=== PATIENT | male | born 1990 | race Caucasian/White ===

== ENCOUNTER 2018-12-28 04:56 | Emergency (ER) | payer OTHER ==
[2018-12-28 05:25] LABS: Appearance,Urine Clear (Clear); Bilirubin,Urine Negative (Negative); Blood,Urine Negative (Negative); Color,Urine Light Yellow; Glucose,Urine (UA) Negative (Negative); Ketones,Urine Negative (Negative); Leukocyte Esterase,Urine Negative (Negative); Nitrite,Urine Negative (Negative); Protein,Urine Negative (Negative); Specific Gravity,Urine 1.007 (1.001-1.035); Urobilinogen,Urine <2.0 mg/dL (<2.0)
--- NOTE | 2018-12-28 05:39 | ED ---
Male Urogenital HPI - General Chief complaint: Urogenital Stated complaint: Testicle pain Time Seen by Provider: 12/28/18 05:09 Source: patient Mode of arrival: ambulatory Limitations: no limitations - History of Present Illness Complaint: testicle pain Onset/Timin -: days(s) Location: left testicle Radiation: none Severity: mild Quality: dull Consistency: intermittent Improves with: none Worsens with: palpation Reports: denies other symptoms - Related Data Home Medications Medication Instructions Recorded Confirmed No Known Home Medications 12/28/18 12/28/18 Allergies Allergy/AdvReac Type Severity Reaction Status Date / Time No Known Allergies Allergy Verified 12/28/18 05:04 Review of Systems ROS Statement: Those systems with pertinent positive or pertinent negative responses have been documented in the HPI. ROS Other: All systems not noted in ROS Statement are negative. Constitutional: Denies: fever, chills Respiratory: Denies: cough Cardiovascular: Denies: chest pain, palpitations Gastrointestinal: Denies: abdominal pain, nausea, vomiting Genitourinary: Reports: testicular pain. Denies: dysuria, frequency, hematuria, discharge, testicular mass Musculoskeletal: Denies: back pain Skin: Denies: rash Neurological: Denies: headache Past Medical History Past Medical History: No Reported History History of Any Multi-Drug Resistant Organisms: None Reported Past Surgical History: No Surgical Hx Reported Past Psychological History: No Psychological Hx Reported Smoking Status: Former smoker Past Alcohol Use History: Rare Past Drug Use History: Marijuana General Exam Limitations: no limitations General appearance: alert, in no apparent distress Head exam: Present: atraumatic, normocephalic Eye exam: Present: normal appearance GI/Abdominal exam: Present: soft. Absent: distended, tenderness, guarding, rebound, rigid, mass exam: Present: normal inspection, testicular tenderness, circumcision. Absent: urethral discharge, scrotal swelling Back exam: Present: normal inspection. Absent: CVA tenderness (R), CVA tenderness (L) Neurological exam: Present: alert, normal gait Skin exam: Present: warm, dry, intact, normal color. Absent: rash Course Vital Signs 12/28/18 05:00 Temperature 98.8 F Pulse Rate 96 Respiratory 20 Rate Blood Pressure 144/92 O2 Sat by Pulse 100 Oximetry Medical Decision Making - Lab Data Lab Results 12/28/18 Range/Units 05:14 Urine Color Light Yellow Urine Appearance Clear (Clear) Urine pH 6.0 (5.0-8.0) Ur Specific [place] 1.007 (1.001-1.035) Urine Protein Negative (Negative) Urine Glucose (UA) Negative (Negative) Urine Ketones Negative (Negative) Urine Blood Negative (Negative) Urine Nitrite Negative (Negative) Urine Bilirubin Negative (Negative) Urine Urobilinogen <2.0 (<2.0) mg/dL Ur Leukocyte Esterase Negative (Negative) Disposition Clinical Impression: Hydrocele Disposition: HOME SELF-CARE Condition: Good Instructions (If sedation given, give patient instructions): Testicle Pain (ED) Is patient prescribed a controlled substance at d/c from ED?: No Referrals: None,Stated [Primary Care Provider] - 1-2 days Aaron Doyle MD [STAFF PHYSICIAN] - 1-2 days
--- NOTE | 2018-12-28 07:28 | US ---
EXAMINATION TYPE: US scrotum with doppler. Grayscale and color Doppler Duplex imaging performed of t pierre scrotum. DATE OF EXAM: 12/28/2018 COMPARISON: NONE CLINICAL HISTORY: Pain, left testicle. EXAM MEASUREMENTS: TESTICLES: Right Testicle: 5.3 x 2.6 x 3.3 cm Left Testicle: 4.5 x 2.4 x 3.7 cm EPIDIDYMIS HEAD: Right Epididymis: 1.4 x 1.0 cm Left Epididymis: 1.4 x 0.6 cm Doppler performed to assess for testicular vascularity; good bilateral color flow and waveforms are s een. Presence of hydroceles: fluid noted around left testicle Presence of varicoceles: none appreciated Echogenic focus noted left testicle sac, measures 0.4 x 0.2 cm, question scrotal yanick. Color images show satisfactory blood flow to both testicles. There is asymmetric small left scrotal f luid collection or hydrocele. Comparison view show symmetric blood flow towards end of study. IMPRESSION: No suspiciously increased or decreased blood flow to left testicle identified.
[2018-12-28 08:00] VITALS: BP 117/84; PULSE 86; RESP 18; TEMP 97.7
== END 2018-12-28 08:00 | disposition home or self-care (01) ==
LOC: EC 04:56
DX: N43.3 Hydrocele, unspecified (principal); Z87.891 Personal history of nicotine dependence
CPT/HCPCS: 76870; 81003; 93975; 99284

== ENCOUNTER 2020-02-09 19:47 | Emergency (ER) | payer OTHER ==
[2020-02-09 20:04] VITALS: RESP 18; TEMP 98.3
[2020-02-09] MEDS ORDERED: LORazepam 2 MG/ML INJ IM STA (20:39)
[2020-02-09] MEDS ORDERED: ONDANSETRON 4 MG ODT STARTER PACK 2 TAB BTL PO STA (21:39)
--- NOTE | 2020-02-09 21:46 | ED ---
General Adult HPI - General Chief complaint: Nausea/Vomiting/Diarrhea Stated complaint: Tremors Time Seen by Provider: 02/09/20 20:06 Source: patient, RN notes reviewed, old records reviewed Mode of arrival: ambulatory Limitations: no limitations - History of Present Illness Initial comments: Patient's 29-year-old male presents today with complaints of withdrawals from benzodiazepine. Patient reports that he has a history of benzodiazepine abuse and also uses ketamine GHB and other STREET drugs. Patient reports he does not have benzodiazepines within the past 3 days. Patient states he is having chills and feels hyperaware. Patient states that he has had some intermittent vomiting. He was seen at [facility] and discharged with oral Valium. He reports no prescriptions were given to the Patient. Patient denies suicidal or homicidal ideations. He states that he is searching for help for rehab. - Related Data Previous Rx's Medication Instructions Recorded chlordiazePOXIDE HCl [Librium] 25 mg PO QID 3 Days #12 capsule 02/09/20 Allergies Allergy/AdvReac Type Severity Reaction Status Date / Time No Known Allergies Allergy Verified 02/09/20 20:04 Review of Systems ROS Statement: Those systems with pertinent positive or pertinent negative responses have been documented in the HPI. ROS Other: All systems not noted in ROS Statement are negative. Past Medical History Past Medical History: No Reported History History of Any Multi-Drug Resistant Organisms: None Reported Past Surgical History: No Surgical Hx Reported Past Psychological History: No Psychological Hx Reported Smoking Status: Former smoker Past Alcohol Use History: Rare Past Drug Use History: Marijuana General Exam - General Exam Comments Initial Comments: 29-year-old male. Alert and oriented 3. Patient appears It is somewhat anxious. Limitations: no limitations General appearance: alert, in no apparent distress Head exam: Present: atraumatic, normocephalic, normal inspection Eye exam: Present: normal appearance ENT exam: Present: normal exam, mucous membranes moist Neck exam: Present: normal inspection. Absent: tenderness, meningismus, lymphadenopathy Respiratory exam: Present: normal lung sounds bilaterally. Absent: respiratory distress, wheezes, rales, rhonchi, stridor Cardiovascular Exam: Present: regular rate, normal rhythm, normal heart sounds. Absent: systolic murmur, diastolic murmur, rubs, gallop, clicks GI/Abdominal exam: Present: soft, normal bowel sounds. Absent: distended, tenderness, guarding, rebound, rigid Extremities exam: Present: normal inspection, full ROM, normal capillary refill. Absent: tenderness, pedal edema, joint swelling, calf tenderness Back exam: Present: normal inspection Neurological exam: Present: alert, oriented X3, CN II-XII intact, other ( resting Tremors of bilateral upper extremity) Psychiatric exam: Present: normal affect, normal mood Skin exam: Present: warm, dry, intact, normal color. Absent: rash Course Vital Signs 02/09/20 02/09/20 20:00 22:24 Temperature 98.3 F Pulse Rate 87 82 Respiratory 18 18 Rate Blood Pressure 118/84 120/79 O2 Sat by Pulse 99 98 Oximetry Medical Decision Making - Medical Decision Making Patient's a 29-year-old male presents today with complaints of benzodiazepine withdrawal and tremors. Patient reports he uses multiple tabs of Valium and Ativan that he purchases from the street. He states he has been out of medications for the past 2 days. He was seen at [facility] today and was given by mouth Valium. He has had no seizures. He does have some evidence of tremors. No vomiting. Vital signs are stable. Discussed the risk for acute withdrawal can lead to seizures. Discussed tapering the Patient with Librium. Given a dose in emergency department. I discussed resources for outpatient referrals for rehab facilities. Patient understands treatment plan will comply. Discharge instructions explained to significant other as well. Disposition Clinical Impression: Withdrawal from benzodiazepine Disposition: HOME SELF-CARE Condition: Good Instructions (If sedation given, give patient instructions): Benzodiazepine Abuse (ED) Additional Instructions: Taper medication for the next 4 days of 4, 3, 2, 1. Rx is at [facility]. Take librium tonight. Follow up with rehab services. Prescriptions: chlordiazePOXIDE HCl [Librium] 25 mg PO QID 3 Days #12 capsule Is patient prescribed a controlled substance at d/c from ED?: No Referrals: None,Stated [Primary Care Provider] - 1-2 days Time of Disposition: 21:41
[2020-02-09] MEDS ORDERED: chlordiazePOXIDE 25 MG CAP PO ONE (22:15)
[2020-02-09 22:25] VITALS: BP 120/79; PULSE 82
== END 2020-02-09 22:25 | disposition home or self-care (01) ==
LOC: EC 19:47
DX: F19.939 Other psychoactive substance use, unspecified with withdrawal, unspecified (principal); Z87.891 Personal history of nicotine dependence
CPT/HCPCS: 96372; 99284; J2060; S0119